=== PATIENT | male | born 1985 | race Caucasian/White ===

== ENCOUNTER 2021-03-21 12:29 | Inpatient (IN) ==
[2021-03-21 13:27] LABS: Immature Granulocytes % 0.2 % (0-4); Red Cell Distribution Width 12.1 % (11.5-14.5)
[2021-03-21 13:29] LABS: Immature Platelets 3.7 % (1.1-6.1)
[2021-03-21 13:32] LABS: Basophils # 0.1 K/mcL (0.0-0.2); Basophils % 0.5 %; Eosinophils % 0.2 %; Hemoglobin 16.9 g/dL (12.9-16.9); Lymphocytes # 1.8 K/mcL (0.6-4.6); Lymphocytes % 18.1 %; Mean Corpuscular HGB Conc 34.5 g/dL (31.6-35.5); Mean Corpuscular Hemoglobin 31.6 pg (28.0-33.3); Mean Corpuscular Volume 91.8 fL (83.0-100.0); Monocytes # 0.5 K/mcL (0.0-1.3); Monocytes % 5.3 %; Neutrophils # 7.4 K/mcL (1.6-8.9); Platelet Count 245 K/mcL (140-400); Red Blood Count 5.34 M/mcL (4.19-5.50); Segmented Neutrophils % 75.7 %; White Blood Count 9.8 K/mcL (4.3-11.1)
[2021-03-21] MEDS ORDERED: *HR* LORazepam 1 MG TABLET PO ONE (13:41)
[2021-03-21 13:47] LABS: Acetaminophen < 10 mcg/mL (10-20); BUN/Creatinine Ratio 19 (6-26); Blood Urea Nitrogen 18 mg/dL (6-20); Calcium 9.8 mg/dL (8.6-10.3); Carbon Dioxide 25 mEq/L (23-29); Chloride 100 mEq/L (98-107); Chol/HDL Ratio 3.5 (0-4.9); Cholesterol 178 mg/dL (< 200); Ethanol < 10 mg/dL (Less than 10); Glucose 96 mg/dL (70-105); HDL Cholesterol 51 mg/dL (40-59); LDL Cholesterol,Calculated 114 mg/dL (< 100); Osmolality,Calculated 284 (280-300); Potassium 4.2 mEq/L (3.5-5.1); Salicylate < 2.5 mg/dL (15.0-30.0); Sodium 136 mEq/L (136-145); Triglycerides 65 mg/dL (< 150); Troponin I < 0.03 ng/mL (< 0.04); eGFR For African Americans > 60 (> 60); eGFR For Non-African Americans > 60 (> 60)
[2021-03-21 14:25] LABS: Bilirubin,Urine Negative (Negative); Blood,Urine Negative (Negative); Clarity,Urine Clear (Clear); Color,Urine Yellow (Yellow); Glucose,Urine (UA) Normal (Normal); Ketones,Urine 40 mg/dL (Negative); Leukocyte Esterase,Urine Negative (Negative); Nitrite,Urine Negative (Negative); PH,Urine 5.5 pH Units (5.0-8.0); Protein,Urine Trace mg/dL (Neg-Trace); Urobilinogen,Urine Normal (Normal)
[2021-03-21 14:35] LABS: Estimated Average Glucose 108 mg/dl; Hemoglobin A1C 5.4 %
[2021-03-21 14:44] LABS: Amphetamine Screen,Urine Positive ng/mL (Cutoff=1000); Barbiturate Screen,Urine Negative ng/mL (Cutoff=200); Benzodiazepines Screen,Urine Negative ng/mL (Cutoff=200); Cannabinoid Screen,Urine Negative ng/mL (Cutoff = 50); Cocaine Screen,Urine Negative ng/mL (Cutoff= 300); Opiate Screen,Urine Negative ng/mL (Cutoff=300); Phencyclidine Screen,Urine Negative ng/mL (Cutoff=25)
[2021-03-21] MEDS ORDERED: Haloperidol Oral Conc 10 MG/5 ML UDC PO STA (15:30)
[2021-03-21 17:52] LABS: Influenza A PCR Negative (Negative); Influenza B PCR Negative (Negative); Resp. Syncytial Virus PCR Negative (Negative)
[2021-03-21 18:04] LABS: SARS-CoV-2 by PCR (In House) Negative (Negative)
[2021-03-21] MEDS ORDERED: *HR* LORazepam 1 MG TABLET PO PRN (18:36)
[2021-03-21] MEDS ORDERED: MOM Conc 10 ML UD.LIQ PO PRN (18:36)
[2021-03-21] MEDS ORDERED: *HR* LORazepam 2 MG/ML VIAL IM PRN (18:36)
[2021-03-21] MEDS ORDERED: haloperidoL 5 MG TABLET PO PRN (18:36)
[2021-03-21] MEDS ORDERED: Haloperidol Lactate 5 MG/ML VIAL IM PRN (18:36)
[2021-03-22] MEDS: Nicotine 21 MG PATCH.TD24 TD SCH ×2 (09:05→17:32)
[2021-03-22] MEDS: hydrOXYzine pamoate 25 MG CAPSULE PO PRN (20:15)
[2021-03-22] MEDS: Ibuprofen 400 MG TABLET PO PRN (20:15)
[2021-03-22] MEDS: traZODone 50 MG TABLET PO PRN (20:15)
[2021-03-23] MEDS: Nicotine 21 MG PATCH.TD24 TD SCH (09:00)
[2021-03-23] MEDS ORDERED: cloNIDine HCL 0.1 MG TABLET PO PRN (09:49)
[2021-03-23] MEDS: hydrOXYzine pamoate 25 MG CAPSULE PO PRN (20:45)
[2021-03-23] MEDS: Ibuprofen 400 MG TABLET PO PRN (20:45)
[2021-03-23] MEDS: traZODone 50 MG TABLET PO PRN (20:45)
[2021-03-24] MEDS: Nicotine 21 MG PATCH.TD24 TD SCH (08:57)
[2021-03-24] MEDS ORDERED: cloNIDine HCL 0.1 MG TABLET PO PRN (09:12)
[2021-03-24] MEDS: Ibuprofen 400 MG TABLET PO PRN (19:37)
[2021-03-24 20:07] VITALS: O2SAT 98
[2021-03-24] MEDS: traZODone 50 MG TABLET PO PRN (20:20)
[2021-03-25] MEDS: Nicotine 21 MG PATCH.TD24 TD SCH (08:34)
[2021-03-25 09:32] VITALS: BP 123/72; PULSE 76; TEMP 98.5
== END 2021-03-25 12:10 | disposition home or self-care (01) | DRG 751 ==
LOC: EMEROOARM 12:29 → 1ANU 18:30
PROVIDERS: ADMIT Psychiatry & Neurology Psychiatry; ATTEND Psychiatry & Neurology Psychiatry